=== PATIENT | female | born 1960 | race Caucasian/White ===

== ENCOUNTER 2017-07-14 13:02 | Emergency (ER) | payer MEDICARE ==
[~2017-07-14] VITALS: Ht 160 cm; Wt 70.0 kg
[~2017-07-14 13:02] MED LIST: ALBUAER3 INH; ASPI325T PO; BACL20TA PO; CYCL1TAB29 PO; DIAZ5TAB PO; FOLI800T PO; HYDR-3580 PO; LEVO50TA4 PO; METH2.5T PO; MONT10TA4 PO; OMEP40CA2 PO; ONDA1TAB16; OXYC1TAB36 PO; PRAV40TA2 PO; PROM12.54 PO; PROP10TA6 PO; SERT-129 PO; SPIR25TA PO; STOO100C; THEO600T PO; TOPI1TAB97 PO; TRAZ50TA12 PO
[2017-07-14 13:05] VITALS: BP 173/77; PULSE 91; RESP 15; TEMP 98.9; O2SAT 96
--- NOTE | 2017-07-14 13:15 | PD ---
Physical Exam Date Seen by Provider: Jul 14, 2017 Time Seen by Provider: 13:13 Narrative 57 yo female here for abdominal pain, N/V/D. Going on for a week. Not better. Worsening. Pain is severe 05/29. No fevers, chills or sweats. No injuries. No blood. No allergies to meds. Has not seen PCP. Vitals stable at triage. Awaiting bed placement. Data Data Last Documented VS Vital Signs Date Time Temp Pulse Resp B/P (MAP) Pulse Ox O2 Delivery O2 Flow Rate FiO2 07/14/17 13:05 98.9 91 15 173/77 (109) 96 MDM Medical Record Reviewed: Yes Supervised Visit with CHRISTINE: No Nitin Wliks Jul 14, 2017 13:15
[2017-07-14 14:59] VITALS: BP 121/79; PULSE 77; RESP 21; O2SAT 96
[2017-07-14 15:12] LABS: BLOOD, URINE NEG (NEG); GLUCOSE,URINE NEG (NEG); KETONE, URINE NEG (NEG); MUCUS URINE FEW /lpf (OCC); NITRITE,URINE NEG (NEG); PH, URINE 6.5 (5.0-8.5); URINE COLOR LIGHT-YELLOW (YELLW/STRAW)
[2017-07-14 15:13] LABS: AUTOMATED NEUTROPHIL # 5.2 TH/MM3 (1.8-7.7); BASOPHIL % 0.5 % (0.0-2.0); COMMENT (UR) CULT NOT INDICATED; CULTURE IF INDICATED CULT NOT INDICATED; EOSINOPHIL # 0.1 TH/MM3 (0-0.4); HEMATOCRIT 40.4 % (35.0-46.0); HEMO FLAGS DIFF FINAL; LYMPH % 16.1 % (9.0-44.0); LYMPHOCYTE # 1.2 TH/MM3 (1.0-4.8); MEAN CELL VOLUME 87.9 FL (80.0-100.0); MEAN CORPUSCULAR HEMOGLOBIN 29.4 PG (27.0-34.0); MEAN CORPUSCULAR HGB CONC 33.4 % (32.0-36.0); MONO % 11.7 % (0.0-8.0); NEUT % 70.7 % (16.0-70.0); PLATELET COUNT 214 TH/MM3 (150-450); RED BLOOD COUNT 4.59 MIL/MM3 (4.00-5.30); RED CELL DISTRIBUTION WIDTH 13.3 % (11.6-17.2); WHITE BLOOD COUNT 7.3 TH/MM3 (4.0-11.0)
[2017-07-14] MEDS ORDERED: SODIUM CHLOR 0.9% 1000 ML INJ 1,000 ML IV ONE (15:15)
[2017-07-14] MEDS ORDERED: MORPHINE SULFATE 4 MG/ML INJ IV PUSH ONE (15:15)
[2017-07-14] MEDS ORDERED: ONDANSETRON HCL 4 MG/2 ML VIAL IV PUSH ONE (15:15)
--- NOTE | 2017-07-14 15:17 | PD ---
HPI Chief Complaint: GI Complaint Time Seen by Provider: 14:30 Travel History International Travel<30 days: No Contact w/Intl Traveler<30days: No Traveled to known affect area: No History of Present Illness HPI Patient is a 57 year old female with history of IBD and Arnold Chiari that presents to the ER with N/V, diarrhea, and abdominal pain. The patient states that she has nausea and vomiting for about 9 days. On Friday she states that her stools started getting more loose and has developed diarrhea. She describes her stools as loose and very smelly. She states that she also now has abdominal pain that is not localized and is described as a 10/10 on the pain scale. Nothing seems to make it better or worse. The patient reveals she has some dysphagia to food and has to alter her diet because of it. She states that at times she has had night sweats during the past week. The patient denies hematemesis, melena, hematochezia, oily stools, SOB, and chest pain. Patient states she takes omeprazole, denies NSAID use, denies anticoagulation. She follows with GI in [place] where she lives for a lot of the year. Her last EGD was in April for dysphagia to solids. Next colonoscopy is needed in 2019. PMH: Arnold Chiari, CAD, IBD, dysphagia, migraine, HTN, miscarriage, Surgical: Appendectomy, cholecystomy, DORINA, cataracts, 25 laparoscopies, 2 [employer] shunts, 2 Decompression surgeries for arnold chiari, Social: Denies alcohol, tobacco, illicit drug use, and recent travel outside of the country Family: No pertinent family history PFSH Past Medical History Cancer: Yes (BREAST) Cardiovascular Problems: Yes Chemotherapy: Yes Cerebrovascular Accident: Yes Diabetes: Yes Patient Takes Glucophage: No Diminished Hearing: No Gastrointestinal Disorders: Yes (IBS) Respiratory: Yes ?: Not Past Surgical History Appendectomy: Yes Section: Yes Cholecystectomy: Yes Gynecologic Surgery: Yes (OVARIAN CYSTS) Hysterectomy: Yes Neurologic Surgery: Yes (TETHERED CORD SX ) Other Surgery: Yes (LUMPECTOMY) Social History Alcohol Use: No Tobacco Use: No Substance Use: No Allergies-Medications (Allergen,Severity, Reaction): Coded Allergies: alcohol (Verified Allergy, Severe, Wheezing, 07/15/17) aspirin (Verified Allergy, Severe, Bleeding, 07/15/17) codeine (Verified Allergy, Severe, Anaphylaxis, 07/15/17) gentamicin (Verified Allergy, Severe, Anaphylaxis, 07/15/17) isoproterenol (Verified Allergy, Severe, Wheezing, 07/15/17) latex (Verified Allergy, Severe, Hives, 07/15/17) lidocaine (Verified Allergy, Severe, Anaphylaxis, 07/15/17) procaine (Verified Allergy, Severe, Anaphylaxis, 07/15/17) propoxyphene (Verified Allergy, Severe, Bleeding, 07/15/17) adhesive tape (Verified Allergy, Intermediate, Rash, 07/15/17) danazol (Verified Allergy, Intermediate, Hives, 07/15/17) Sulfa (Sulfonamide Antibiotics) (Verified Allergy, Unknown, Wheezing, 07/15) AND HIVES shellfish derived (Verified Allergy, Unknown, Anaphylaxis, 07/15/17) Uncoded Allergies: BEE STINGS (Allergy, Severe, Anaphylaxis, 07/14/17) DURA TEARS (Allergy, Severe, Hives, 07/14/17) EPINEPRINE (Allergy, Severe, Anaphylaxis, 07/14/17) PT SAID SHE WAS A RT AND IN A CODE SHE HAD EPI SQUIRTED ON HER, SHE SAID SHE THEN CODED WELL. PCN (Allergy, Severe, Anaphylaxis, 07/14/17) Reported Meds & Prescriptions Reported Meds & Active Scripts Active Imodium A-D (Loperamide HCl) 2 Mg Capsule 2 Mg PO Q6H PRN Dicyclomine (Dicyclomine HCl) 20 Mg Tab 20 Mg PO QID 1-2 tabs every 4-6 hours as needed Flexeril (Cyclobenzaprine HCl) 10 Mg Tab 10 Mg PO TID Flagyl (Metronidazole) 500 Mg Tab 500 Mg PO BID 7 Days Reported Proair Hfa 8.5 GM Inh (Albuterol Sulfate) 90 Mcg/Act Aer 1 Puff INH Q4H PRN 108 mcg/actuation Stool Softener (Docusate Sodium) 100 Mg Cap Aspirin 325 Mg Tab 325 Mg PO DAILY Ondansetron (Ondansetron HCl) 4 Mg Tab Oxycodone-Acetaminophen 10-325 mg Tab 1 Tab PO BID PRN Montelukast (Montelukast Sodium) 10 Mg Tab 10 Mg PO HS Theophylline ER 24 HR (Theophylline) 600 Mg Tab 600 Mg PO DAILY Promethazine (Promethazine HCl) 12.5 Mg Tab 25 Mg PO Q6H PRN Baclofen 20 Mg Tab 20 Mg PO TID Topiramate 25 Mg Tab 25 Mg PO BID Sertraline (Sertraline HCl) 100 Mg Tab 100 Mg PO DAILY Trazodone (Trazodone HCl) 50 Mg Tab 50 Mg PO TID Omeprazole 40 Mg Cap 40 Mg PO DAILY Spironolactone 25 Mg Tab 25 Mg PO DAILY Propranolol (Propranolol HCl) 10 Mg Tab 10 Mg PO Q8HR Methotrexate 2.5 Mg Tab 2.5 Mg PO Q7D Levothyroxine (Levothyroxine Sodium) 50 Mcg Tab 50 Mcg PO DAILY Hydrocodone-Acetaminophen 7.5-325 mg Tab 1 Tab PO Q6H PRN Folic Acid 0.8 Mg Tab 800 Mcg PO DAILY Diazepam 5 Mg Tab 5 Mg PO TID PRN Pravastatin 40 Mg Tab 40 Mg PO DAILY Review of Systems Except as stated in HPI: all other systems reviewed are Neg Physical Exam Narrative GENERAL: Patient is in no acute distress, she is a strong historian SKIN: Warm and dry. HEAD: Atraumatic. Normocephalic. EYES: Pupils equal and round. No scleral icterus. No injection or drainage. ENT: No nasal bleeding or discharge. Mucous membranes pink and moist. NECK: Trachea midline. No JVD. CARDIOVASCULAR: Regular rate and rhythm. s1 and s2 appreciated RESPIRATORY: No accessory muscle use. Clear to auscultation. Breath sounds equal bilaterally. GASTROINTESTINAL: Abdomen soft,nondistended. Hepatic and splenic margins not palpable. Pain on light palpation in all 4 quadrants but without any rebound or percussive tenderness. No guarding. MUSCULOSKELETAL: Extremities without clubbing, cyanosis, or edema. No obvious deformities. NEUROLOGICAL: Awake and alert. No obvious cranial nerve deficits. Motor grossly within normal limits. Five out of 5 muscle strength in the arms and legs. Normal speech. PSYCHIATRIC: Appropriate mood and affect; insight and judgment normal. Data Data Last Documented VS Orders Orders Complete Blood Count With Diff (07/14/17 13:15) Comprehensive Metabolic Panel (07/14/17 13:15) Lipase (07/14/17 13:15) Lactic Acid (07/14/17 13:15) Urinalysis - C+S If Indicated (07/14/17 13:15) Sodium Chlor 0.9% 1000 Ml Inj (Ns 1000 M (07/14/17 15:15) Morphine Inj (Morphine Inj) (07/14/17 15:15) Ondansetron Inj (Zofran Inj) (07/14/17 15:15) Ct Abd/Pel W/O Iv Contrast (07/14/17 ) Potassium Chloride (Kcl) (07/14/17 17:30) Labs Laboratory Tests Test 07/14/17 14:35 White Blood Count 7.3 TH/MM3 Red Blood Count 4.59 MIL/MM3 Hemoglobin 13.5 GM/DL Hematocrit 40.4 % Mean Corpuscular Volume 87.9 FL Mean Corpuscular Hemoglobin 29.4 PG Mean Corpuscular Hemoglobin Concent 33.4 % Red Cell Distribution Width 13.3 % Platelet Count 214 TH/MM3 Mean Platelet Volume 8.6 FL Neutrophils (%) (Auto) 70.7 % Lymphocytes (%) (Auto) 16.1 % Monocytes (%) (Auto) 11.7 % Eosinophils (%) (Auto) 1.0 % Basophils (%) (Auto) 0.5 % Neutrophils # (Auto) 5.2 TH/MM3 Lymphocytes # (Auto) 1.2 TH/MM3 Monocytes # (Auto) 0.9 TH/MM3 Eosinophils # (Auto) 0.1 TH/MM3 Basophils # (Auto) 0.0 TH/MM3 CBC Comment DIFF FINAL Differential Comment Urine Color LIGHT-YELLOW Urine Turbidity CLEAR Urine pH 6.5 Urine Specific [place] 1.004 Urine Protein NEG mg/dL Urine Glucose (UA) NEG mg/dL Urine Ketones NEG mg/dL Urine Occult Blood NEG Urine Nitrite NEG Urine Bilirubin NEG Urine Urobilinogen LESS THAN 2.0 MG/DL Urine Leukocyte Esterase TRACE Urine WBC LESS THAN 1 /hpf Urine Mucus FEW /lpf Microscopic Urinalysis Comment CULT NOT INDICATED Blood Urea Nitrogen 9 MG/DL Creatinine 1.08 MG/DL Random Glucose 88 MG/DL Total Protein 7.0 GM/DL Albumin 3.3 GM/DL Calcium Level 8.8 MG/DL Alkaline Phosphatase 66 U/L Aspartate Amino Transf (AST/SGOT) 12 U/L Alanine Aminotransferase (ALT/SGPT) 7 U/L Total Bilirubin 0.5 MG/DL Sodium Level 140 MEQ/L Potassium Level 2.9 MEQ/L Chloride Level 105 MEQ/L Carbon Dioxide Level 27.5 MEQ/L Anion Gap 8 MEQ/L Estimat Glomerular Filtration Rate 52 ML/MIN Lactic Acid Level 0.8 mmol/L Lipase 103 U/L [facility] Medical Decision Making Medical Screen Exam Complete: Yes Emergency Medical Condition: Yes Differential Diagnosis Acute on chronic abdominal pain, irritable bowel syndrome, acute abdomen unlikely, electrolyte abnormality, acute kidney injury. Narrative Course Patient roomed in emergency department, the review of her surgical history is quite remarkable decompression of Arnold-Chiari, fixation of lumbar spine, multiple abdominal explorations in the past. Consideration needs to be given to somatoform disorder however at this time patient warrants medical workup. Patient does have some mild hypokalemia was given pain medicine, CT of her abdomen was performed without contrast as the patient has had anaphylaxis to IV contrast in the past. Last 24 hours Impressions Abdomen/Pelvis CT 07/14/17 0000 Signed Impressions: Service Date/Time: Friday, July 14, 2017 16:42 - CONCLUSION: Right renal scarring. No inflammatory changes are seen in the abdomen or pelvis. Julio Layne MD Discussed the results with the patient and her benign abdominal exam on revisit. At this time she is stable for discharge. Discussed need for follow- up with her neurologist as well as her GI doctor both of whom are in [place]. She requests a referral to a gastric neurologist here in [place]. Discussed need follow-up with a primary care physician as well. Discussed return to ED criteria. No indication for further emergent workup at this time. Diagnosis Primary Impression: Abdominal pain Qualified Codes: R10.9 - Unspecified abdominal pain Referrals: Raven Kaplan MD Med/Other Pt SpecificInfo: Prescription(s) given Scripts Cyclobenzaprine (Flexeril) 10 Mg Tab 10 MG PO TID for Muscle Spasm, #20 TAB 0 Refills Prov: Alex Lemus MD 07/14/17 Metronidazole (Flagyl) 500 Mg Tab 500 MG PO BID for Infection for 7 Days, #14 TAB 0 Refills Prov: Alex Lemus MD 07/14/17 Disposition: 01 DISCHARGE HOME Condition: Stable Alex Lemus MD Jul 14, 2017 15:17
[2017-07-14 15:43] LABS: ALKALINE PHOSPHATASE 66 U/L (45-117); ALT (GPT) 7 U/L (10-53); ANION GAP 8 MEQ/L (5-15); AST (GOT) 12 U/L (15-37); BICARBONATE 27.5 MEQ/L (21.0-32.0); BLOOD UREA NITROGEN 9 MG/DL (7-18); CHLORIDE 105 MEQ/L (98-107); GLOMERULAR FILTRATION RATE 52 ML/MIN (>89); SODIUM (NA) 140 MEQ/L (136-145); TOTAL BILIRUBIN ADULT 0.5 MG/DL (0.2-1.0)
[2017-07-14 15:49] LABS: POTASSIUM 2.9 MEQ/L (3.5-5.1)
[2017-07-14 15:58] VITALS: RESP 16
[2017-07-14 16:21] VITALS: BP 113/70; PULSE 68; O2SAT 97
--- NOTE | 2017-07-14 17:08 | RADRPT ---
EXAM DATE/TIME: 07/14/2017 16:42 [facility] COMPARISON: No previous studies available for comparison. INDICATIONS : Patient complains of abdominal pain, nausea and vomiting for one week. ORAL CONTRAST: No oral contrast ingested. RADIATION DOSE: 10.07 CTDIvol (mGy) MEDICAL HISTORY : Diabetes mellitus type 1. Carcinoma, breast. SURGICAL HISTORY : Appendectomy. Cholecystectomy.Hysterectomy. ENCOUNTER: Initial ACUITY: 1 week PAIN SCALE: 10/10 LOCATION: abdomen TECHNIQUE: Volumetric scanning of the abdomen and pelvis was performed. Using automated exposure control and ad justment of the mA and/or kV according to patient size, radiation dose was kept as low as reasonably achievable to obtain optimal diagnostic quality images. DICOM format image data is available electro nically for review and comparison. FINDINGS: Lung bases are clear. The osseous structures demonstrate posterior rojelio and transpedicular screw fixat ion at L4-5. No pleural or pericardial effusions are seen. Cholecystectomy clips are noted. Liver, le ft kidney, spleen, pancreas, adrenal glands are unremarkable. There is scarring at the upper and midd le poles of the right kidney. No calculi. Urinary bladder is unremarkable. The patient is status post hysterectomy. There are surgical clips present in the pelvis. There is no evidence of bowel obstruct ion. Stomach, large bowel, small bowel are unremarkable. The patient is status post appendectomy. No adenopathy or aneurysm. CONCLUSION: Right renal scarring. No inflammatory changes are seen in the abdomen or pelvis. Julio Layne MD on July 14, 2017 at 17:04 Board Certified Radiologist. This report was verified electronically.
[2017-07-14] MEDS ORDERED: METR-1 PO (17:24)
[2017-07-14] MEDS ORDERED: CYCL1TAB29 PO (17:30)
[2017-07-14] MEDS ORDERED: POTASSIUM CHLORIDE 20 MEQ CONTROLLED RELEASE TAB PO ONE (17:30)
[2017-07-14 17:47] VITALS: BP 143/76
[2017-07-14] MEDS ORDERED: DICY10 PO (17:54)
[2017-07-15] MEDS ORDERED: DICY20TA10 PO (15:28)
[2017-07-15] MEDS ORDERED: LOPE-1 PO (15:34)
[2017-07-21] MEDS ORDERED: CIPR500T2 PO (15:27)
[2017-07-22] MEDS ORDERED: CEFI5CAP PO (10:02)
== END 2017-07-14 18:13 | disposition home or self-care (01) ==
LOC: NEPE 13:02
DX: R10.9 Unspecified abdominal pain (principal); R11.2 Nausea with vomiting, unspecified; R19.7 Diarrhea, unspecified; I25.10 Atherosclerotic heart disease of native coronary artery without angina pectoris; I10 Essential (primary) hypertension; E11.9 Type 2 diabetes mellitus without complications; Z86.73 Personal history of transient ischemic attack (TIA), and cerebral infarction without residual deficits; K58.9 Irritable bowel syndrome, unspecified
CPT/HCPCS: 74176; 80053; 81001; 83605; 83690; 85025; 96361; 96374; 96375; 99285; J2270; J2405; J7030; 99213; G0463

== ENCOUNTER 2018-01-03 10:05 | Observation (INO) | payer MEDICARE ==
[~2018-01-03] VITALS: Ht 160 cm; Wt 62.6 kg
[2018-01-03] VITALS (11 sets, daily range): BP systolic 100–157; BP diastolic 63–80; PULSE 60–74; RESP 12–20; TEMP 96.4–98.9; O2SAT 95–99
[~2018-01-03 10:05] MED LIST changes: +ASPI-183 PO; -ASPI325T PO; +CEFI5CAP PO; +CYCL10TA PO; -CYCL1TAB29 PO; +DICY20TA10 PO; +DOCU1CAP66; +LOPE-1 PO; +METR-1 PO; -ONDA1TAB16; +ONDA4TAB15; -STOO100C; -TOPI1TAB97 PO; +TOPI25TA7 PO
[2018-01-03] MEDS ORDERED: SODIUM CHLORIDE 0.9% FLUSH 10 ML FLUSH IVF PRN (10:15)
--- NOTE | 2018-01-03 10:15 | PD ---
HPI Chief Complaint: Chest Pain Time Seen by Provider: 10:12 Travel History International Travel<30 days: No Contact w/Intl Traveler<30days: No Traveled to known affect area: No History of Present Illness HPI Patient gives a history of 1 day substernal chest pain radiating to her left shoulder, rates it a 8 out of 10, initially described as sharp, denies any shortness of breath but did have associated nausea and one episode of vomiting earlier this morning.. 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 Denies any alleviating or aggravating factors. Denies any associated factors such as fever, headache, back pain, abdominal pain, diarrhea or rash. Multiple and many allergies see above Past medical history significant for CVA, IBS, appendectomy cholecystectomy diabetes dyslipidemia hysterectomy IBS breast cancer with chemotherapy in remission.... Botox injections for migraine. Significant family history for LA, stents, CHF PFSH Past Medical History Cancer: Yes (BREAST) Cardiovascular Problems: Yes Chemotherapy: Yes Cerebrovascular Accident: Yes Diabetes: Yes Diminished Hearing: No Gastrointestinal Disorders: Yes (IBS) Respiratory: Yes Past Surgical History Appendectomy: Yes Section: Yes Cholecystectomy: Yes Gynecologic Surgery: Yes (OVARIAN CYSTS) Hysterectomy: Yes Neurologic Surgery: Yes (TETHERED CORD SX ) Other Surgery: Yes (LUMPECTOMY) Social History Alcohol Use: No Tobacco Use: No Substance Use: No Allergies-Medications (Allergen,Severity, Reaction): Coded Allergies: Penicillins (Verified Allergy, Severe, 01/03/18) alcohol (Verified Allergy, Severe, Wheezing, 01/03/18) aspirin (Verified Allergy, Severe, Bleeding, 01/03/18) codeine (Verified Allergy, Severe, Anaphylaxis, 01/03/18) gentamicin (Verified Allergy, Severe, Anaphylaxis, 01/03/18) isoproterenol (Verified Allergy, Severe, Wheezing, 01/03/18) latex (Verified Allergy, Severe, Hives, 01/03/18) lidocaine (Verified Allergy, Severe, Anaphylaxis, 01/03/18) procaine (Verified Allergy, Severe, Anaphylaxis, 01/03/18) propoxyphene (Verified Allergy, Severe, Bleeding, 01/03/18) adhesive tape (Verified Allergy, Intermediate, Rash, 01/03/18) danazol (Verified Allergy, Intermediate, Hives, 01/03/18) Sulfa (Sulfonamide Antibiotics) (Verified Allergy, Unknown, Wheezing, 01/03) AND HIVES shellfish derived (Verified Allergy, Unknown, Anaphylaxis, 01/03/18) Uncoded Allergies: BEE STINGS (Allergy, Severe, Anaphylaxis, 07/14/17) DURA TEARS (Allergy, Severe, Hives, 07/14/17) EPINEPRINE (Allergy, Severe, Anaphylaxis, 07/14/17) PT SAID SHE WAS A RT AND IN A CODE SHE HAD EPI SQUIRTED ON HER, SHE SAID SHE THEN CODED WELL. PCN (Allergy, Severe, Anaphylaxis, 07/14/17) Reported Meds & Prescriptions Reported Meds & Active Scripts Active Reported Nexium (Esomeprazole DR) 40 Mg Capdr 40 Mg PO DAILY Milk of Magnesia Liq (Magnesium Hydroxide) 400 Mg/5 Ml Susp 45 Ml PO DAILY Macrobid (Nitrofurantoin Monoh/Nitrofur Macro) 100 Mg Cap 100 Mg PO DAILY Propranolol (Propranolol HCl) 10 Mg Tab 5 Mg PO HS Ambien (Zolpidem Tartrate) 10 Mg Tab 10 Mg PO HS PRN Stool Softener (Docusate Sodium) 100 Mg Cap Aspirin 325 Mg Tab 325 Mg PO DAILY Ondansetron (Ondansetron HCl) 4 Mg Tab Baclofen 20 Mg Tab 20 Mg PO QID Propranolol (Propranolol HCl) 10 Mg Tab 10 Mg PO DAILY Levothyroxine (Levothyroxine Sodium) 50 Mcg Tab 50 Mcg PO DAILY Review of Systems General / Constitutional: No: Fever Eyes: No: Visual changes HENT: No: Headaches Cardiovascular: Positive: Chest Pain or Discomfort Respiratory: No: Shortness of Breath Gastrointestinal: No: Abdominal Pain Genitourinary: No: Dysuria Musculoskeletal: No: Pain Skin: No Rash Neurologic: No: Weakness Psychiatric: No: Depression Endocrine: No: Polydipsia Hematologic/Lymphatic: No: Easy Bruising Physical Exam Narrative GENERAL: SKIN: Warm and dry. HEAD: Atraumatic. Normocephalic. EYES: Pupils equal and round. No scleral icterus. No injection or drainage. ENT: No nasal bleeding or discharge. Mucous membranes pink and moist. NECK: Trachea midline. No JVD. CARDIOVASCULAR: Regular rate and rhythm. RESPIRATORY: No accessory muscle use. Clear to auscultation. Breath sounds equal bilaterally. GASTROINTESTINAL: Abdomen soft, non-tender, nondistended. MUSCULOSKELETAL: Extremities without clubbing, cyanosis, or edema. No obvious deformities. NEUROLOGICAL: Awake and alert. No obvious cranial nerve deficits. Motor grossly within normal limits. Five out of 5 muscle strength in the arms and legs. Normal speech. PSYCHIATRIC: Appropriate mood and affect; insight and judgment normal. Data Data Last Documented VS Vital Signs Date Time Temp Pulse Resp B/P (MAP) Pulse Ox O2 Delivery O2 Flow Rate FiO2 01/03/18 12:10 63 18 104/66 (79) 96 Room Air 01/03/18 10:10 98.3 Orders Orders Electrocardiogram (01/03/18 10:15) Ckmb (Isoenzyme) Profile (01/03/18 10:15) Complete Blood Count With Diff (01/03/18 10:15) Comprehensive Metabolic Panel (01/03/18 10:15) Prothrombin Time / Inr (Pt) (01/03/18 10:15) Act Partial Throm Time (Ptt) (01/03/18 10:15) Troponin I (01/03/18 10:15) Lipase (01/03/18 10:15) Chest, Single Ap (01/03/18 10:15) Ecg Monitoring (01/03/18 10:15) Bilateral Bp Monitoring (01/03/18 10:15) Iv Access Insert/Monitor (01/03/18 10:15) Oximetry (01/03/18 10:15) Oxygen Administration (01/03/18 10:15) Sodium Chloride 0.9% Flush (Ns Flush) (01/03/18 10:15) Lorazepam Inj (Ativan Inj) (01/03/18 10:30) Lorazepam Inj (Ativan Inj) (01/03/18 11:00) Ondansetron Inj (Zofran Inj) (01/03/18 11:00) Admit Order (Ed Use Only) (01/03/18 12:16) Labs Laboratory Tests Test 01/03/18 10:15 White Blood Count 8.6 TH/MM3 Red Blood Count 4.90 MIL/MM3 Hemoglobin 15.0 GM/DL Hematocrit 44.0 % Mean Corpuscular Volume 89.8 FL Mean Corpuscular Hemoglobin 30.5 PG Mean Corpuscular Hemoglobin Concent 34.0 % Red Cell Distribution Width 13.9 % Platelet Count 237 TH/MM3 Mean Platelet Volume 9.4 FL Neutrophils (%) (Auto) 80.2 % Lymphocytes (%) (Auto) 13.9 % Monocytes (%) (Auto) 5.3 % Eosinophils (%) (Auto) 0.1 % Basophils (%) (Auto) 0.5 % Neutrophils # (Auto) 6.9 TH/MM3 Lymphocytes # (Auto) 1.2 TH/MM3 Monocytes # (Auto) 0.5 TH/MM3 Eosinophils # (Auto) 0.0 TH/MM3 Basophils # (Auto) 0.0 TH/MM3 CBC Comment DIFF FINAL Differential Comment Prothrombin Time 10.2 SEC Prothromb Time International Ratio 1.0 RATIO Activated Partial Thromboplast Time 25.0 SEC Blood Urea Nitrogen 16 MG/DL Creatinine 2.10 MG/DL Random Glucose 115 MG/DL Total Protein 8.1 GM/DL Albumin 4.0 GM/DL Calcium Level 9.7 MG/DL Alkaline Phosphatase 66 U/L Aspartate Amino Transf (AST/SGOT) 19 U/L Alanine Aminotransferase (ALT/SGPT) 14 U/L Total Bilirubin 0.4 MG/DL Sodium Level 141 MEQ/L Potassium Level 3.4 MEQ/L Chloride Level 108 MEQ/L Carbon Dioxide Level 23.5 MEQ/L Anion Gap 10 MEQ/L Estimat Glomerular Filtration Rate 24 ML/MIN Total Creatine Kinase 36 U/L Troponin I LESS THAN 0.02 NG/ML Lipase 159 U/L MDM Medical Decision Making Medical Screen Exam Complete: Yes Emergency Medical Condition: Yes Medical Record Reviewed: Yes Differential Diagnosis Pneumonia versus pleural effusion versus pneumothorax versus STEMI versus non- STEMI versus atypical ACS versus pulmonary edema versus pulmonary embolus Narrative Course CBC shows no leukocytosis, no anemia, normal platelet count, and no left shift Coagulation profile is within normal limits Chemistry shows normal electrolytes, however abnormal creatinine of 2.1 with a GFR of 24 consistent with renal insufficiency possibly stage IV Normal liver functions normal pancreatic functions negative first set of troponin Diagnosis Primary Impression: Chest pain rule out LA Admitting Information Admitting Physician Requests: Observation Jak Laird MD Jan 03, 2018 10:15
[2018-01-03 10:28] LABS: AUTOMATED NEUTROPHIL # 6.9 TH/MM3 (1.8-7.7); BASOPHIL % 0.5 % (0.0-2.0); EOSINOPHIL % 0.1 % (0.0-4.0); LYMPH % 13.9 % (9.0-44.0); LYMPHOCYTE # 1.2 TH/MM3 (1.0-4.8); MEAN CELL VOLUME 89.8 FL (80.0-100.0); MEAN CORPUSCULAR HEMOGLOBIN 30.5 PG (27.0-34.0); MEAN PLATELET VOLUME 9.4 FL (7.0-11.0); MONO % 5.3 % (0.0-8.0); MONOCYTE # 0.5 TH/MM3 (0-0.9); NEUT % 80.2 % (16.0-70.0); PLATELET COUNT 237 TH/MM3 (150-450); RED CELL DISTRIBUTION WIDTH 13.9 % (11.6-17.2); WHITE BLOOD COUNT 8.6 TH/MM3 (4.0-11.0)
[2018-01-03] MEDS ORDERED: LORazepam 2 MG/ML VIAL IV PUSH ONE ×2 (10:30→11:00)
--- NOTE | 2018-01-03 10:34 | RADRPT ---
EXAM DATE/TIME: 01/03/2018 10:21 [facility] COMPARISON: No previous studies available for comparison. INDICATIONS : Chest pain MEDICAL HISTORY : asthma SURGICAL HISTORY : None. ENCOUNTER: Initial ACUITY: 1 day PAIN SCORE: 10/10 LOCATION: Bilateral chest FINDINGS: A single view of the chest demonstrates the lungs to be symmetrically aerated without evidence of mas s, infiltrate or effusion. The cardiomediastinal contours are unremarkable. Osseous structures are intact. CONCLUSION: No acute disease. Dana Kendrick MD on January 03, 2018 at 10:31 Board Certified Radiologist. This report was verified electronically.
[2018-01-03 10:35] LABS: CHLORIDE 108 MEQ/L (98-107); SODIUM (NA) 141 MEQ/L (136-145)
[2018-01-03 10:38] LABS: CALCIUM 9.7 MG/DL (8.5-10.1)
[2018-01-03 10:39] LABS: BICARBONATE 23.5 MEQ/L (21.0-32.0); BLOOD UREA NITROGEN 16 MG/DL (7-18); GLUCOSE,RANDOM 115 MG/DL (74-106)
[2018-01-03 10:42] LABS: ALT (GPT) 14 U/L (10-53); AST (GOT) 19 U/L (15-37); GLOMERULAR FILTRATION RATE 24 ML/MIN (>89)
[2018-01-03] MEDS ORDERED: NEXI40CA PO (10:42)
[2018-01-03] MEDS ORDERED: AMBI10TA PO (10:42)
[2018-01-03] MEDS ORDERED: MACR100C2 PO (10:42)
[2018-01-03] MEDS ORDERED: MILKSUS PO (10:42)
[2018-01-03] MEDS ORDERED: PROP10TA6 PO (10:42)
[2018-01-03 10:43] LABS: TOTAL BILIRUBIN ADULT 0.4 MG/DL (0.2-1.0); TOTAL PROTEIN 8.1 GM/DL (6.4-8.2)
[2018-01-03 10:44] LABS: ALKALINE PHOSPHATASE 66 U/L (45-117)
[2018-01-03 10:47] LABS: TROPONIN I LESS THAN 0.02 NG/ML (0.02-0.05)
[2018-01-03] MEDS ORDERED: ONDANSETRON HCL 4 MG/2 ML VIAL IV PUSH ONE (11:00)
[2018-01-03 11:10] LABS: PROTHROMBIN TIME - PATIENT 10.2 SEC (9.8-11.6)
[2018-01-03] MEDS ORDERED: REGADENOSON INJ 0.4 MG/5 ML SYR IV ONE (12:19)
[2018-01-03] MEDS ORDERED: SODIUM CHLOR 0.9% 1000 ML INJ 1,000 ML IV SCH (13:00)
[2018-01-03] MEDS ORDERED: MORPHINE SULFATE 2 MG/ML INJ IV PUSH PRN (13:00)
[2018-01-03] MEDS ORDERED: SODIUM CHLORIDE 0.9% FLUSH 10 ML FLUSH IV FLUSH PRN (13:00)
[2018-01-03] MEDS ORDERED: NITROGLYCERIN 0.4 MG SL 25 TABS/BTL SL PRN (13:00)
[2018-01-03] MEDS ORDERED: ONDANSETRON HCL 4 MG/2 ML VIAL IV PUSH PRN (13:00)
[2018-01-03] MEDS ORDERED: ENOXAPARIN SODIUM 40 MG/0.4 ML SYRINGE SQ SCH (13:00)
[2018-01-03] MEDS ORDERED: SODIUM CHLOR 0.9% 1000 ML INJ 1,000 ML IV ONE (14:15)
[2018-01-03] MEDS ORDERED: POTASSIUM CHLORIDE 20 MEQ CONTROLLED RELEASE TAB PO ONE ×2 (14:30→19:00)
--- NOTE | 2018-01-03 14:37 | HHI.HP ---
[facility] [place] [facility] Primary Care Physician No Primary Care Physician Admission Diagnosis CP R/O IA Diagnoses: (1) Chest pain Diagnosis: Principal Chief Complaint: Chest pain Travel History International Travel<30 Days: No Contact w/Intl Traveler <30 Da: No Traveled to Known Affected Are: No History of Present Illness This is a 57-year-old rather complicated female with complex medical history of Arnold Chiari syndrome, Raynauds syndrome, coronary artery disease, diabetes, apparently narcotic prescription use, history of breast cancer, who presented to hospital because of multiple reasons. It is difficult to obtain information from the patient because she states that she is purposefully leaving out information, telling false information, not giving full information about her history, medications because she does not want us to think that she is a drug addict. Patient states that she does live here in [place], however she has specialist in [place] in every field. She states that she goes back and sees her specialist every 3 months in [place] for her medical conditions. According to medical records it was indicated the patient presented for one day history of substernal chest pitting rating to her left shoulder which was 8 out of 10 on a pain scale which he describes as a sharp. With associated nausea and one episode of vomiting. When I discussed with the patient her presenting symptom she states that she came in for multiple medical reasons. She did present for the chest discomfort, however she states that she feels that she may have had a stroke also because a few days ago she was having difficulty with walking with what she describes as she was walking drunk bleed. In reference to the chest pain. Patient states that she has been experiencing this chest pain intermittently for years. She was told by her electrical service technician in [place] that if she went to the hospital every time that she had a chest pain that she would live in the hospital. She described the pain to me as a sharp, dull, achy, pressure type sensation that is intermittently constant that last for an hour at a time. She had an episode of nausea, vomiting, diaphoresis, shortness of breath, lightheadedness, dizziness so she came to the emergency department for evaluation. Patient did have workup done emergency department found to have troponin levels which were unremarkable, EKG shows sinus bradycardia. Is recommended that the patient be observed and chest pain center for further evaluation and management. Patient indicates that she is had a stress test approximately 5 years ago by her electrical service technician in [place]. Patient is also concerned about her difficulty in walking. She states that it felt as if she was drunk 2 days ago, however her ambulation has improved. She denies any other neurological symptoms such as dysphagia, unilateral weakness, paresthesia , paralysis, slurred speech, facial droop. Patient does have a neurologist in [place]. She refrains from going to the hospital in this area because recently she went to [facility] and was told by a neurologist in the area that she is a drug addict. And she states that she falsified information here at this hospital by not giving all of her information, medications, so we would not think that she was a drug addict. Patient was very difficult to try to obtain information from. It is obvious that she was withholding information. Even during the physical exam the patient purposefully did not perform requested movements, she would not follow commands. She states that she purposely did not follow commands. However she tried to indicate that she cannot follow directions because of the previous brain surgeries that she has had. Unfortunately very difficult to take care of this patient or obtain information from the patient. We'll try to evaluate her presenting symptoms and rule out any life-threatening illnesses. Otherwise, if patient fails to cooperate with future testing and refuses to give truthful information we may need to have her Hernandez acted and evaluated by psychiatry. Review of Systems Constitutional: COMPLAINS OF: Diaphoretic episodes Cardiovascular: COMPLAINS OF: Chest pain (chronic intermittent) Gastrointestinal: COMPLAINS OF: Nausea, Vomiting Neurologic: COMPLAINS OF: Abnormal gait (chronic) Except as stated in HPI: all other systems reviewed are Neg Past Family Social History Past Medical History Information was taken from medical records due to the patient states that she has too many medical problems to discuss Arnold-Chiari syndrome History of CVA Are not syndrome History of shingles History diabetes Coronary artery disease Some of ventricular tachycardia History of pressure/migraine headache Soft tissue disorder Bilateral breast cancer Hypothyroidism Hyperlipidemia Irritable bowel syndrome Past Surgical History Appendectomy Cholecystectomy Brain surgery 2 for Arnold Chiari syndrome 3 Tonsillectomy Cataract surgery Eye surgery Hysterectomy Shot in place and currently remove Tethered cord surgery Laminectomy and fusion of L3 through L5 Bilateral breast lumpectomy Reported Medications Patient indicates that this is not her complete medication list. She indicates that she purposefully did not give her whole list of medications because everyone thinks that she is a drug addict when she gives a list of all of her medications. She openly admits that she gave false information about her medications Nexium (Esomeprazole DR) 40 Mg Capdr 40 Mg PO DAILY Milk of Magnesia Liq (Magnesium Hydroxide) 400 Mg/5 Ml Susp 45 Ml PO DAILY Macrobid (Nitrofurantoin Monoh/Nitrofur Macro) 100 Mg Cap 100 Mg PO DAILY Propranolol (Propranolol HCl) 10 Mg Tab 5 Mg PO HS Ambien (Zolpidem Tartrate) 10 Mg Tab 10 Mg PO HS PRN Stool Softener (Docusate Sodium) 100 Mg Cap Aspirin 325 Mg Tab 325 Mg PO DAILY Ondansetron (Ondansetron HCl) 4 Mg Tab Baclofen 20 Mg Tab 20 Mg PO QID Propranolol (Propranolol HCl) 10 Mg Tab 10 Mg PO DAILY Levothyroxine (Levothyroxine Sodium) 50 Mcg Tab 50 Mcg PO DAILY Allergies: Coded Allergies: Penicillins (Verified Allergy, Severe, 01/03/18) Sulfa (Sulfonamide Antibiotics) (Verified Allergy, Severe, Wheezing, ) AND HIVES alcohol (Verified Allergy, Severe, Wheezing, 01/03/18) aspirin (Verified Allergy, Severe, Bleeding, 01/03/18) bee venom protein (honey bee) (Verified Allergy, Severe, ANAPHYLAXIS, 01/03) codeine (Verified Allergy, Severe, Anaphylaxis, 01/03/18) gentamicin (Verified Allergy, Severe, Anaphylaxis, 01/03/18) isoproterenol (Verified Allergy, Severe, Wheezing, 01/03/18) latex (Verified Allergy, Severe, Hives, 01/03/18) lidocaine (Verified Allergy, Severe, Anaphylaxis, 01/03/18) procaine (Verified Allergy, Severe, Anaphylaxis, 01/03/18) propoxyphene (Verified Allergy, Severe, Bleeding, 01/03/18) shellfish derived (Verified Allergy, Severe, Anaphylaxis, 01/03/18) adhesive tape (Verified Allergy, Intermediate, Rash, 01/03/18) danazol (Verified Allergy, Intermediate, Hives, 01/03/18) epinephrine (Verified Allergy, Unknown, ANAPHYLAXIS, 01/03/18) PT SAID SHE WAS A RT AND IN A CODE SHE HAD EPI SQUIRTED ON HER, SHE SAID SHE THEN CODED WELL. Uncoded Allergies: DURA TEARS (Allergy, Severe, Hives, 07/14/17) Family History Reviewed and patient states that rather significant that she is inherited all of her conditions from her family. 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 She denies any tobacco, alcohol or illicit drugs Physical Exam Vital Signs Vital Signs Date Time Temp Pulse Resp B/P (MAP) Pulse Ox O2 Delivery O2 Flow Rate FiO2 01/03/18 13:32 01/03/18 13:08 60 18 125/70 (88) 96 Room Air 01/03/18 12:50 60 18 100/63 (75) 95 Room Air 01/03/18 12:10 63 18 104/66 (79) 96 Room Air 01/03/18 10:59 64 18 118/75 (89) 99 Room Air 01/03/18 10:30 69 140/78 (98) 142/78 (99) 01/03/18 10:20 99 Room Air 01/03/18 10:20 20 99 Room Air 01/03/18 10:15 74 01/03/18 10:10 98.3 74 20 157/80 (105) 99 Physical Exam GENERAL: Well-developed, frail and cachectic, in no acute distress. alert and orientated HEENT: Head is normocephalic without any lesions or masses noted. Facial features are symmetric. Eyes: Pupils equal round reactive to light. Extraocular muscles are intact. Conjunctivae were clear. Oropharyngeal: Pharynx without any erythema edema. Tongue is midline without deviation. Buccal mucosa is moist without any masses or lesions, NECK: Supple without any masses. Trachea midline no deviation. No JVD, no bruits are appreciated CARDIAC: Regular rhythm, regular rate. S1/S2 are heard. No murmurs gallops or rubs. LUNGS: Clear to auscultation bilaterally. No wheeze, rhonchi or rales. No use of accessory muscles on inspiration or expiration. ABDOMEN: Soft, nontender. Nondistended. Bowel sounds heard in all 4 quadrants. No organomegaly or masses. Negative rebound, negative guarding EXTREMITIES: No edema, pulses are equal bilaterally. No cyanosis or clubbing NEUROLOGY: Mood and affect appear appropriate. Cranial nerves II through XII grossly intact. Muscle strength 5/5 in upper and lower extremities bilaterally. Deep tendon reflexes are 2+ in upper and lower extremities bilaterally. Unfortunately majority of the exam was performed through observation and manipulation due to the patient was purposefully not participating in examination, she was overtly trying to not perform/or do requested movements or part of exams. The patient overtly stated that she was not participating on purpose. She was trying to give an excuse that because of her previous brain surgeries she cannot act on command or perform activities on command Laboratory Laboratory Tests Test 01/03/18 10:15 01/03/18 13:05 White Blood Count 8.6 Red Blood Count 4.90 Hemoglobin 15.0 Hematocrit 44.0 Mean Corpuscular Volume 89.8 Mean Corpuscular Hemoglobin 30.5 Mean Corpuscular Hemoglobin Concent 34.0 Red Cell Distribution Width 13.9 Platelet Count 237 Mean Platelet Volume 9.4 Neutrophils (%) (Auto) 80.2 Lymphocytes (%) (Auto) 13.9 Monocytes (%) (Auto) 5.3 Eosinophils (%) (Auto) 0.1 Basophils (%) (Auto) 0.5 Neutrophils # (Auto) 6.9 Lymphocytes # (Auto) 1.2 Monocytes # (Auto) 0.5 Eosinophils # (Auto) 0.0 Basophils # (Auto) 0.0 CBC Comment DIFF FINAL Differential Comment Prothrombin Time 10.2 Prothromb Time International Ratio 1.0 Activated Partial Thromboplast Time 25.0 Blood Urea Nitrogen 16 Creatinine 2.10 Random Glucose 115 Total Protein 8.1 Albumin 4.0 Calcium Level 9.7 Alkaline Phosphatase 66 Aspartate Amino Transf (AST/SGOT) 19 Alanine Aminotransferase (ALT/SGPT) 14 Total Bilirubin 0.4 Sodium Level 141 Potassium Level 3.4 Chloride Level 108 Carbon Dioxide Level 23.5 Anion Gap 10 Estimat Glomerular Filtration Rate 24 Total Creatine Kinase 36 Troponin I LESS THAN 0.02 Lipase 159 Result Diagram: 01/03/18 1015 01/03/18 1015 Imaging Last Impressions Chest X-Ray 01/03/18 1015 Signed Impressions: Service Date/Time: Wednesday, January 03, 2018 10:21 - CONCLUSION: No acute disease. MD Sheba Gregorio VTE Risk Assessment Caprini VTE Risk Assessment: Mod/High Risk (score >= 2) Caprini Risk Assessment Model Point Value = 1 Point Value = 2 Point Value = 3 Point Value = 5 Age 41-60 Minor surgery BMI > 25 kg/m2 Swollen legs Varicose veins or History of unexplained or recurrent spontaneous Oral contraceptives or hormone replacement Sepsis (< 1 month) Serious lung disease, including pneumonia (< 1 month) Abnormal pulmonary function Acute myocardial infarction Congestive heart failure (< 1 month) History of inflammatory bowel disease Medical patient at bed rest Age 61-74 Arthroscopic surgery Major open surgery (> 45 min) Laparoscopic surgery (> 45 min) Malignancy Confined to bed (> 72 hours) Immobilizing plaster cast Central venous access Age >= 75 History of VTE Family history of VTE Factor V Leiden Prothrombin [id number] Lupus anticoagulant Anticardiolipin antibodies Elevated serum homocysteine Heparin-induced thrombocytopenia Other congenital or acquired thrombophilia Stroke (< 1 month) Elective arthroplasty Hip, pelvis, or leg fracture Acute spinal cord injury (< 1 month) Prophylaxis Regimen Total Risk Factor Score Risk Level Prophylaxis Regimen 0-1 Low Early ambulation 2 Moderate Order ONE of the following: *Sequential Compression Device (SCD) *Heparin 5000 units SQ BID 3-4 Higher Order ONE of the following medications: *Heparin 5000 units SQ TID *Enoxaparin/Lovenox 40 mg SQ daily (WT < 150 kg, CrCl > 30 mL/min) *Enoxaparin/Lovenox 30 mg SQ daily (WT < 150 kg, CrCl > 10-29 mL/min) *Enoxaparin/Lovenox 30 mg SQ BID (WT < 150 kg, CrCl > 30 mL/min) AND/OR *Sequential Compression Device (SCD) 5 or more Highest Order ONE of the following medications: *Heparin 5000 units SQ TID (Preferred with Epidurals) *Enoxaparin/Lovenox 40 mg SQ daily (WT < 150 kg, CrCl > 30 mL/min) *Enoxaparin/Lovenox 30 mg SQ daily (WT < 150 kg, CrCl > 10-29 mL/min) *Enoxaparin/Lovenox 30 mg SQ BID (WT < 150 kg, CrCl > 30 mL/min) AND *Sequential Compression Device (SCD) Assessment and Plan Assessment and Plan Chest pain, atypical Patient with increased risk factors to include age, family history of heart disease, coronary artery disease Patient had been ruled out for acute coronary event with serial cardiac enzymes that have remained negative Serial EKGs shows sinus bradycardia heart rate 55 without any changes, ST elevations or T-wave inversions Myocardial perfusion study was performed which did not indicate any acute ischemia and low risk Unable to use aspirin due to patient allergy Nitroglycerin as needed Ataxia Patient states she has history of CVA, multiple brain injuries, multiple neurological problems CT scan of the brain was done which did not indicate any acute abnormality. Physical therapy evaluation was performed and patient was walking over 120 feet with standby assist. No indications of any ataxia. No recommendations for outpatient physical therapy Chronic kidney disease stage III, unknown if there is a acute renal failure superimposed Review medical records do indicate patient does have history of chronic kidney disease stage III We'll give 1 L IV fluid Reevaluated renal functions with improvement from 2.2 down to 1.7 after IV hydration, patient's baseline from years ago was 1.1 Chronic medical illnesses to include Arnold-Chiari syndrome, CVA, coronary artery disease, hypothyroidism Home medications will be continued DVT prevention Subcutaneous Lovenox Discharge disposition Discharge home in stable condition Activity: Ad ghanshyam. Diet: Healthy heart diet Medication per medication which alleviation Follow-up with primary medical doctor in 1 week Armando Martin Jan 03, 2018 14:37
[2018-01-03 14:40] LABS: TROPONIN I LESS THAN 0.02 NG/ML (0.02-0.05)
--- NOTE | 2018-01-03 15:36 | RADRPT ---
EXAM DATE/TIME: 01/03/2018 15:17 [facility] COMPARISON: CT ABDOMEN & PELVIS W/O CONTRAST, July 14, 2017, 16:42. INDICATIONS : Ataxia. RADIATION DOSE: 57.85 CTDIvol (mGy) MEDICAL HISTORY : Cerebrovascular disease. Cardiovascular disease Carcinoma, breast.Tethered cord, raynauds SURGICAL HISTORY : Appendectomy. Cholecystectomy.Hysterectomy.Lspine ENCOUNTER: Initial ACUITY: 1 day PAIN SCALE: 0/10 LOCATION: cranial TECHNIQUE: Multiple contiguous axial images were obtained of the head. Using automated exposure control and adj ustment of the mA and/or kV according to patient size, radiation dose was kept as low as reasonably a chievable to obtain optimal diagnostic quality images. DICOM format image data is available electro nically for review and comparison. FINDINGS: CEREBRUM: The ventricles are normal for age. No evidence of midline shift, mass lesion, hemorrhage or acute in farction. No extra-axial fluid collections are seen. POSTERIOR FOSSA: The cerebellum and brainstem are intact. The 4th ventricle is midline. The cerebellopontine angle i s unremarkable. EXTRACRANIAL: The visualized portion of the orbits is intact. SKULL: The calvaria is intact. No evidence of skull fracture. There is a previous tamy hole the skull along the right frontal bone. There are changes consistent with craniotomy at the acetabular area. CONCLUSION: 1. No acute intracranial abnormality identified. 2. Previous tamy hole within the skull along the right frontal region and evidence of a subdural cran iotomy. Matt Moreno MD on January 03, 2018 at 15:33 Board Certified Radiologist. This report was verified electronically.
[2018-01-03 16:34] LABS: TROPONIN I LESS THAN 0.02 NG/ML (0.02-0.05)
--- NOTE | 2018-01-03 16:46 | EKG ---
Date Performed: 01/03/2018 Time Performed: 13:20:24 PTAGE: 57 years EKG: SINUS BRADYCARDIA WITH SHORT IL INTERVAL BORDERLINE ECG Since PREVIOUS TRACING , no significant change noted PREVIOUS TRACIN01/03/2018 10.11 DOCTOR: Feroz Zamora Interpretating Date/Time 01/03/2018 16:44:28
--- NOTE | 2018-01-03 16:46 | EKG ---
Date Performed: 01/03/2018 Time Performed: 10:11:00 PTAGE: 57 years EKG: Sinus rhythm WITH SHORT RI INTERVAL MODERATE ST DEPRESSION ABNORMAL ECG NO PREVIOUS TRACING DOCTOR: Feroz Zamora Interpretating Date/Time 01/03/2018 16:44:16
[2018-01-03 17:35] LABS: CALCIUM 8.6 MG/DL (8.5-10.1); CREATININE 1.7 MG/DL (0.50-1.00)
--- NOTE | 2018-01-03 18:32 | HHI.DCPOC ---
Discharge Care Plan Diagnosis: (1) Chest pain Goals to Promote Your Health * To prevent worsening of your condition and complications * To maintain your health at the optimal level Directions to Meet Your Goals Take your medications as prescribed Follow your dietary instruction Follow activity as directed Keep your appointments as scheduled Take your immunizations and boosters as scheduled If your symptoms worsen call your PCP, if no PCP go to Urgent Care Center or Emergency Room Smoking is Dangerous to Your Health. Avoid second hand smoke Call the 24-hour hour crisis hotline for domestic abuse at Armando Martin Jan 03, 2018 18:32
--- NOTE | 2018-01-03 18:46 | RADRPT ---
EXAM DATE/TIME: 01/03/2018 17:15 [facility] COMPARISON: No previous studies available for comparison. INDICATIONS : Substernal chest pain radiating to the left shoulder with nausea. Angina. DOSE: 27.1 mCi Tc99m Myoview at stress. 8.8 mCi Tc99m Myoview at rest. 0.4 mg Lexiscan STRESS SYMPTOMS: Chest pressure and nausea. EJECTION FRACTION: > 70% MEDICAL HISTORY : Diabetes mellitus type 2. Stroke Carcinoma, breast. SURGICAL HISTORY : Appendectomy. Cholecystectomy. Hysterectomy. ENCOUNTER: Initial ACUITY: 1 day PAIN SCALE: 8/10 LOCATION: Substernal chest TECHNIQUE: The patient underwent pharmacologic stress with infusion of prescribed dose. Continuous ECG tracing was monitored during stress. Gated SPECT imaging was performed after stress and conventional SPECT i maging was performed at rest. The examination was performed on a SPECT/CT scanner, both attenuation and non-corrected datasets were reviewed. FINDINGS: DISTRIBUTION: The maximum perfused segment at stress is in the anterolateral wall. PERFUSION STUDY: The pattern of perfusion at stress is within normal limits. GATED STUDY: There is intact wall motion and thickening without hypokinetic or dyskinetic segments. CONCLUSION: 1. No reversible perfusion defect to indicate stress-induced myocardial ischemia identified. RISK CATEGORY: Low (<1% Annual Mortality Rate) Matt Moreno MD on January 03, 2018 at 18:43 Board Certified Radiologist. This report was verified electronically.
[2018-01-03] MEDS ORDERED: SODIUM CHLORIDE 0.9% FLUSH 10 ML FLUSH IV FLUSH SCH (21:00)
[2018-01-04] MEDS ORDERED: ASPIRIN 325 MG TAB PO SCH (09:00)
--- NOTE | 2018-01-04 13:04 | TR ---
Date Performed: 01/03/2018 Time Performed: 17:49:33 DOCTOR: Feroz Zamora DRUG LIST: CLINICAL HISTORY: REASON FOR TEST: Chest pain REASON FOR ENDING: OBSERVATION: CONCLUSION: Lexiscan stress test was performed under standard four minute protocol. Radionuclid e was injected one minute prior to ending the test. No electrocardiographic abormalities were present to suggest ischemia. Nuclear imaging and interpretation are pending. COMMENTS:
--- NOTE | 2018-01-04 13:06 | EKG ---
Date Performed: 01/03/2018 Time Performed: 15:59:59 PTAGE: 57 years EKG: Sinus rhythm NORMAL ECG PREVIOUS TRACING : 01/03/2018 13.20 Since previous tracing, no significant change noted DOCTOR: Feroz Zamora Interpretating Date/Time 01/04/2018 13:05:15
== END 2018-01-03 19:58 | disposition home or self-care (01) ==
LOC: PHED 10:05 → PHEDA 12:18 → PH3B 13:28
PROVIDERS: ADMIT Hospitalist; ATTEND Hospitalist
DX: R07.89 Other chest pain (principal); R27.0 Ataxia, unspecified; R11.2 Nausea with vomiting, unspecified; N18.3 Chronic kidney disease, stage 3 (moderate); R00.1 Bradycardia, unspecified; Q07.00 Arnold-Chiari syndrome without spina bifida or hydrocephalus; I25.10 Atherosclerotic heart disease of native coronary artery without angina pectoris; E03.9 Hypothyroidism, unspecified; R94.31 Abnormal electrocardiogram [ECG] [EKG]; I73.00 Raynaud's syndrome without gangrene; E11.9 Type 2 diabetes mellitus without complications; K58.9 Irritable bowel syndrome, unspecified; F19.20 Other psychoactive substance dependence, uncomplicated; Z79.899 Other long term (current) drug therapy; Z79.82 Long term (current) use of aspirin; Z85.3 Personal history of malignant neoplasm of breast; Z86.73 Personal history of transient ischemic attack (TIA), and cerebral infarction without residual deficits
CPT/HCPCS: 70450; 71045; 78452; 80048; 80053; 82550; 83690; 84484; 85025; 85610; 85730; 93005; 93017; 96361; 96372; 96374; 96375; 96376; 97162; 99285; A9502; G0378; J1650; J2060; J2270; J2405; J2785; J7030